=== PATIENT | female | born 1955 | race Caucasian/White ===

== ENCOUNTER 2016-10-24 11:56 | Inpatient (IN) | payer MEDICARE ==
--- NOTE | 2016-10-24 12:18 | EDPRACDOC ---
- General Information Chief Complaint: Generalized Weakness Stated Complaint: SYNCOPAL EPISODE CP [facility] DX WITH PNEUMONIA Time Seen by Provider: 10/24/16 12:11 Mode Of Arrival: Car Home Medications: Home Medications Albuterol Sulfate [Proventil, Ventolin] 2.5 mg NEB Q6H 10/24/16 Budesonide/Formoterol Fumarate [Symbicort 160-4.5 Mcg Inhaler] 2 puff INH BID Divalproex Sodium [Depakote] 500 mg PO DAILY 10/24/16 Gabapentin 300 mg PO TID 10/24/16 Levofloxacin [Levaquin] 500 mg PO .DAILY X 7D 10/24/16 Lisinopril/Hydrochlorothiazide [Lisinopril-Hctz 10-12.5 mg Tab] 1 tab PO DAILY 10/24/16 Mirtazapine [Remeron] 30 mg PO HS 10/24/16 Montelukast Sodium [Singulair] 10 mg PO DAILY 10/24/16 Oxycodone HCl [Oxycodone Immediate Release] 10 mg PO BID 10/24/16 Pantoprazole Sodium [Protonix] 40 mg PO DAILY 10/24/16 Prednisone [Deltasone, Orasone] 10 mg PO .TAPER 10/24/16 Rosuvastatin Calcium [Crestor] 20 mg PO DAILY 10/24/16 Tizanidine HCl [Zanaflex] 4 mg PO BID 10/24/16 Allergies/Adverse Reactions: Allergies Allergy/AdvReac Type Severity Reaction Status Date / Time acetaminophen Allergy Unknown Verified 10/24/16 12:18 [From Darvocet-N] meperidine [From Demerol] Allergy Unknown Verified 10/24/16 12:18 propoxyphene Allergy Unknown Verified 10/24/16 12:18 [From Darvocet-N] ALL CILLINS Allergy Anaphylaxis Uncoded 10/24/16 12:18 * - 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 PT REPORTS FEVER TO 104 LAST NIGHT Duration: Minutes (LESS THAN ONE MINUTE) Presyncopal phase:: Reports: Other (DIZZINESS) Syncopal phase:: Reports: With standing Postsyncopal phase:: Reports: Rapid recovery Prehospital care: Reports: None History of: Denies: Atrial Fibrillation, Aneurysm, Syncope, Seizures, Hypoglycemia Associated Signs/Symptoms: Reports: Chest pain, Fever, SOB. 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 (Medication/ neb tx x 2 at home Dose/Time) ED Past Medical History - History Reviewed Yes Nurses notes reviewed and agree except as marked - Patient Medical History Cardiac History: Reports: Hypertension, Cardiac Catheterization, Hypercholesterolemia Respiratory History: Reports: Asthma, COPD GI/ History: Reports: Gastroesophageal Reflux Musculoskeletal History: Reports: Arthritis Systemic History: Denies: Cancer Surgical History: Reports: Appendectomy, Hysterectomy, Cardiac Catheterization - Social Medical History Smoking Status: Former smoker ETOH: None Substance Abuse: None EDM Review of Systems - Review of Systems Constitutional: Chills, Fever Eyes: negative: Blurred Vision, Double Vision Ears: negative: Drainage Throat: negative: Pain Nose: Congestion. negative: Discharge Respiratory: Cough, Shortness of Breath, Wheezing Cardiovascular: Syncope. negative: Chest Pain, Palpitations Gastrointestinal: negative: Diarrhea, Nausea, Pain, Vomiting Genitourinary: negative: Dysuria, Frequency Neurological: negative: Dizziness, Headache, Numbness, Weakness Musculoskeletal: No Symptoms Reported Integumentary: No Symptoms Reported - Physical Exam Constitutional: Alert (Awake), No apparent distress Oriented to: Time, Person, Place Last recorded Vital Signs: Last Vital Signs Temp 98.2 F 10/24/16 12:03 Pulse 79 10/24/16 12:03 Resp 18 10/24/16 12:03 BP 134/63 10/24/16 12:03 Pulse Ox 95 10/24/16 12:03 Oxygen Pulse Oxygen Saturation 95 O2 Device Room Air Oxygen Flow Rate Fraction of Inspired Oxygen ( FIO2) - HEENT Head: Normal ( normocephalic) Eye Exam: Normal (PERRL, EOMI, Sclera white) Oropharynx: Normal (Pharynx:Moist without exudate,Gums-no swelling) Tympanic Membrane: Normal ENT EAC: Normal TMJ: Normal Nose: No Symptoms Reported (septum midline) Neck: Normal (FROM, trachea at midline) - Respiratory/Cardiovascular Respiratory: Rhonchi. negative: Accessory Muscle Use, Retractions Cardiovascular: Normal (RRR without murmur, gallop or rub) - GI Auscultation: Normal (NABS) Palpation: Normal (Soft,No rebound or guarding, non distended) Tenderness: Non tender Herring's Sign: Negative - Musculoskeletal Back: Normal (Non-Tender) Extremities: Normal (Normal tone, Pulses 2+ No cyanosis or edema, FROM) - Integumentary Skin: Normal, Warm, Dry Lymphatics: Normal (no adenopathy) - Neurologic Memory Impaired: Normal Motor Function: Normal (Normal tone, Pulses 2+ No cyanosis or edema, FROM) Cranial Nerve: Normal (CN II-X11 intact sensation, strength 5/5) Cerebellar: Normal Mood Description: Normal Perception: Normal - Differential Diagnosis Anemia, Dehydration, Electrolyte Disorder, Myocardial Infarction, Pulmonary Embolus - Re-evaluation Re-evaluation 1 Re-evaluation Time: 14:33 (FEELS A LITTLE BETTER BUT STILL SOBR) - Results 10/24/16 12:16 10/24/16 12:16 10/24/16 14:34 Laboratory Results - last 24 hr 10/24/16 10/24/16 10/24/16 12:16 12:16 12:16 WBC 12.1 H RBC 4.22 Hgb 13.0 Hct 38.8 MCV 92 MCH 30.8 MCHC 33.4 RDW 14.0 Plt Count 273 MPV 9.4 Neut % (Auto) 78.0 H Lymph % (Auto) 15.8 L [place] % (Auto) 5.7 Eos % (Auto) 0.1 Baso % (Auto) 0.4 Absolute Neuts (auto) 9.44 H Absolute Lymphs (auto) 1.82 PT INR APTT Puncture Site pH pCO2 pO2 HCO3 Total CO2 Base Excess FiO2 % Specimen Drawn By Sodium 142 Potassium 4.0 Chloride 105 Carbon Dioxide 26 Anion Gap 15 BUN 23 H Creatinine 1.10 H Estimated GFR (MDRD) 50 L Glucose 95 Calculated Osmolality 277 Lactic Acid 1.2 Calcium 9.9 Total Bilirubin 0.5 AST 28 ALT 32 Alkaline Phosphatase 88 Troponin I < 0.01 Fwx-N-Vydzirwmjmw Pept 155 Total Protein 7.5 Albumin 4.2 Lipase 165 10/24/16 10/24/16 12:16 14:08 WBC RBC Hgb Hct MCV MCH MCHC RDW Plt Count MPV Neut % (Auto) Lymph % (Auto) [place] % (Auto) Eos % (Auto) Baso % (Auto) Absolute Neuts (auto) Absolute Lymphs (auto) PT 12.0 H INR 1.2 APTT 19.4 L Puncture Site Right radial pH 7.450 pCO2 35.0 pO2 57.0 L HCO3 24.3 Total CO2 25.4 Base Excess 0.7 FiO2 % 21% Specimen Drawn By Piksa Sodium Potassium Chloride Carbon Dioxide Anion Gap BUN Creatinine Estimated GFR (MDRD) Glucose Calculated Osmolality Lactic Acid Calcium Total Bilirubin AST ALT Alkaline Phosphatase Troponin I Tzp-N-Asgclwjvsyv Pept Total Protein Albumin Lipase - EKG EKG #1 EKG Time: 12:17 -: Yes EKG interpreted by me Rate: bpm: 78 [place]: Normal Rhythm: NSR Block: None Hypertrophy: None ST: Nonsp Comparison: 01/05/11 (NO CHANGE) - Diagnostic Imaging CT HEAD Image interpreted by: Radiologist CT HEAD WITHOUT CONTRAST TECHNIQUE: Contiguous axial images were obtained from the base of the skull through the vertex without intravenous contrast. COMPARISON: MR Brain 06/11/2014 FINDINGS: There is no evidence of mass effect, midline shift or extra-axial fluid collections. There is no evidence of a space-occupying lesion or intracranial hemorrhage. There is no evidence of a cortical-based area of acute infarction. The ventricles and sulci are appropriate for the patient's age. The basal cisterns are patent. Visualized portions of the orbits are unremarkable. The visualized portions of the paranasal sinuses and mastoid air cells are unremarkable. The osseous structures are unremarkable. IMPRESSION: No acute intracranial pathology. CXR Image interpreted by: Radiologist CHEST 2 VIEW COMPARISON: 10/22/2016 FINDINGS: There was mild hazy left lower lobe airspace disease has seen on the lateral view. There is no other focal parenchymal opacity. There is no pleural effusion or pneumothorax. The heart and mediastinal contours are unremarkable. The osseous structures are unremarkable. IMPRESSION: Mild hazy left lower lobe airspace disease has seen on the lateral view improved compared with the prior exam. - Additional Information DISCUSSED WITH DR MILLER, HE WILL DISCUSS WITH HOSPITALIST - Departure Condition: Stable Final Diagnosis: Community acquired pneumonia, Hypoxia, Failure of outpatient treatment, SNYCOPE Instructions: Weakness (ED) Referrals: [place] [Primary Care Provider] - One Week Prescriptions: No Action Montelukast Sodium [Singulair] 10 mg PO DAILY Divalproex Sodium [Depakote] 500 mg PO DAILY Tizanidine HCl [Zanaflex] 4 mg PO BID Mirtazapine [Remeron] 30 mg PO HS Oxycodone HCl [Oxycodone Immediate Release] 10 mg PO BID Lisinopril/Hydrochlorothiazide [Lisinopril-Hctz 10-12.5 mg Tab] 1 tab PO DAILY Gabapentin 300 mg PO TID Rosuvastatin Calcium [Crestor] 20 mg PO DAILY Prednisone [Deltasone, Orasone] 10 mg PO .TAPER Budesonide/Formoterol Fumarate [Symbicort 160-4.5 Mcg Inhaler] 2 puff INH BID Levofloxacin [Levaquin] 500 mg PO .DAILY X 7D Albuterol Sulfate [Proventil, Ventolin] 2.5 mg NEB Q6H Pantoprazole Sodium [Protonix] 40 mg PO DAILY
[2016-10-24] MEDS ORDERED: Albuterol/Ipratropium Neb 3 ML NEB NEB ONE (12:20)
[2016-10-24 12:43] LABS: AUTOMATED BASOPHIL 0.4 % (0-2); AUTOMATED EOSINOPHIL 0.1 % (0-5); AUTOMATED LYMPH 15.8 % (17-44); AUTOMATED MONOCYTE 5.7 % (3-10); MPV 9.4 fL (7.4-10.4)
[2016-10-24 12:54] LABS: BLOOD UREA NITROGEN 23 MG/DL (7-17); CALCIUM 9.9 MG/DL (8.4-10.2); CALCULATED OSMOLALITY 277 MOs/Kg (270-290); CHLORIDE 105 mEq/L (98-107); GLUCOSE 95 mg/dL (70-99); SODIUM LEVEL 142 mEq/L (137-146); TOTAL PROTEIN 7.5 G/DL (6.3-8.2)
[2016-10-24 12:55] LABS: PARTIAL THROMB. TIME 19.4 SEC (22-35); PT-INR 1.2
--- NOTE | 2016-10-24 13:14 | DIRPT ---
CLINICAL DATA: Syncope EXAM: CT HEAD WITHOUT CONTRAST TECHNIQUE: Contiguous axial images were obtained from the base of the skull through the vertex without intravenous contrast. COMPARISON: MR Brain 06/11/2014 FINDINGS: There is no evidence of mass effect, midline shift or extra-axial fluid collections. There is no evidence of a space-occupying lesion or intracranial hemorrhage. There is no evidence of a cortical-based area of acute infarction. The ventricles and sulci are appropriate for the patient's age. The basal cisterns are patent. Visualized portions of the orbits are unremarkable. The visualized portions of the paranasal sinuses and mastoid air cells are unremarkable. The osseous structures are unremarkable. IMPRESSION: No acute intracranial pathology. Electronically Signed By: Lindsay Isaac On: 10/24/2016 13:12
--- NOTE | 2016-10-24 13:31 | DIRPT ---
CLINICAL DATA: Shortness of breath with pneumonia for 2 days. EXAM: CHEST 2 VIEW COMPARISON: 10/22/2016 FINDINGS: There was mild hazy left lower lobe airspace disease has seen on the lateral view. There is no other focal parenchymal opacity. There is no pleural effusion or pneumothorax. The heart and mediastinal contours are unremarkable. The osseous structures are unremarkable. IMPRESSION: Mild hazy left lower lobe airspace disease has seen on the lateral view improved compared with the prior exam. Electronically Signed By: Lindsay Isaac On: 10/24/2016 13:28
[2016-10-24 14:13] LABS: ALLEN'S TEST PASS; BEb 0.7 (+/- 2); TCO2 25.4 MMOL/L (23-27)
[2016-10-24 14:14] LABS: ABG Draw Site Right Radial
[2016-10-24] MEDS ORDERED: Levofloxacin 750 mg/150 ml D5W 750 MG/150 ML RTU IV ONE (14:49)
[2016-10-24] MEDS ORDERED: BENZONATATE 100 MG PERLES PO PRN (14:58)
[2016-10-24] MEDS ORDERED: TUSSIONEX 5 ML ORAL SYRINGE PO PRN (14:58)
[2016-10-24] MEDS ORDERED: ALBUTEROL 0.083% 3 ML NEB NEB PRN (14:58)
[2016-10-24] MEDS ORDERED: BISACODYL 10 MG SUPP PR PRN (14:58)
[2016-10-24] MEDS ORDERED: ACETAMINOPHEN 325 MG SUPP PR PRN (14:58)
[2016-10-24] MEDS ORDERED: SENNA CONCENTRATE TAB PO PRN (14:58)
[2016-10-24] MEDS ORDERED: ACETAMINOPHEN 325 MG/TAB TABLET PO PRN (14:58)
[2016-10-24] MEDS ORDERED: ONDANSETRON HCL 4 MG/2 ML VIAL IV PRN (14:58)
[2016-10-24] MEDS ORDERED: PROMETHAZINE 25 MG/ML VIAL IV PRN (14:58)
[2016-10-24] MEDS ORDERED: CEFTRIAXONE 1 GM in D5W 100 ML IV SCH (16:00)
[2016-10-24] MEDS ORDERED: DIPHENHYDRAMINE 25 MG CAP PO PRN (17:02)
--- NOTE | 2016-10-24 17:18 | HISTPHYS ---
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 She noted a sore throat and continued feeling worse over the ensuing days. She went to see her primary care provider in Dr. Valdez's office who started her on Levaquin and prednisone for the infection. She had a fever to 104 F that same day and today she noted increased shortness breath. She came into the emergency room with hypoxemia and left lower lobe infiltrate on chest x-ray. She also mentioned that she had severe left lower chest pleuritic pain that made it very difficult for her to breathe. She also has a history of 2 back operations with intermittent right lower extremity sciatica, Aguilar's esophagus, asthma, COPD associated with 150 pack year history of tobacco abuse stopping 5 years ago hypertension migraines with stroke like symptoms, peripheral neuropathy, and muscle spasms in her back. She indicates that she has also suffered with right knee injury requiring 11 separate surgeries but never having had it replaced. Forty years ago she had peritonitis from a ruptured appendix. - Medical History Cardiac History: Reports: Hypertension, Cardiac Catheterization, Hypercholesterolemia. Denies: Atrial Fibrillation, Syncope Respiratory History: Reports: Asthma, COPD GI/ History: Reports: Gastroesophageal Reflux Musculoskeletal History: Reports: Arthritis Systemic History: Denies: Cancer Neurological History: Denies: Seizures - Surgical History Reports: Appendectomy, Hysterectomy, Cardiac Catheterization - Medictions/Allergies Allergies acetaminophen [From Darvocet-N] Allergy (Verified 10/24/16 12:18) Unknown meperidine [From Demerol] Allergy (Verified 10/24/16 12:18) Unknown propoxyphene [From Darvocet-N] Allergy (Verified 10/24/16 12:18) Unknown ALL CILLINS Allergy (Uncoded 10/24/16 12:18) Anaphylaxis* Current Medication List: Reviewed Home Medications Albuterol Sulfate [Proventil, Ventolin] 2.5 mg NEB Q6H 10/24/16 Budesonide/Formoterol Fumarate [Symbicort 160-4.5 Mcg Inhaler] 2 puff INH BID Divalproex Sodium [Depakote] 500 mg PO DAILY 10/24/16 Gabapentin 300 mg PO TID 10/24/16 Levofloxacin [Levaquin] 500 mg PO .DAILY X 7D 10/24/16 Lisinopril/Hydrochlorothiazide [Lisinopril-Hctz 10-12.5 mg Tab] 1 tab PO DAILY 10/24/16 Mirtazapine [Remeron] 30 mg PO HS 10/24/16 Montelukast Sodium [Singulair] 10 mg PO DAILY 10/24/16 Oxycodone HCl [Oxycodone Immediate Release] 10 mg PO BID 10/24/16 Pantoprazole Sodium [Protonix] 40 mg PO DAILY 10/24/16 Prednisone [Deltasone, Orasone] 10 mg PO .TAPER 10/24/16 Rosuvastatin Calcium [Crestor] 20 mg PO DAILY 10/24/16 Tizanidine HCl [Zanaflex] 4 mg PO BID 10/24/16 - Family History Reports: Hypertension, Diabetes, Cancer (Father had cancer of the colon), Stroke (Father), Cardiac Disorders - Social History Travel Outside of [place] in the Last 3 Months?: No Lives: with Spouse Smoking Status: Former smoker (Former heavy smoker with 150 pack year history of tobacco abuse) Social History: Reports: Alcohol Use. Denies: Substance Use Disorder - Review of Systems Constitutional: No Symptoms Reported (No Fever, chills, wt loss/gain, diaphoresis,fatigue/malaise.) Eyes: No Symptoms Reported (No blurry vision, visual changes, eye pain, or eye redness.) Ears: No Symptoms Reported (No ear pain or discharge) Nose: No Symptoms Reported (No nasal discharge/congestion or bleeding) Mouth: No Symptoms Reported (No oropharyngeal lesions or erythema) Throat/Neck: No Symptoms Reported (No throat pain or swelling.No oropharyngeal lesions or erythema.) Respiratory: Cough, Shortness of Breath, Wheezing, Pleurisy Cardiovascular: No Symptoms Reported (No chest pain or palpitations.) Gastrointestinal: No Symptoms Reported (No abdominal pain, nausea, vomiting, diarrhea, constipation, or bloody stool.) Genitourinary: No Symptoms Reported (No dysuria or hematuria.) Neurological: No Symptoms Reported (No headache, dizziness, seizures, or focal weakness.) Musculoskeletal:: Chronic low back pain, Osteoarthritis, Joint Pain Integumentary: No Symptoms Reported (no rashes or lesions) Allergic/Immunologic: No Symptoms Reported (no rashes or lesions) Hematologic: No Symptoms Reported (No chronic anemia, bleeding, or easy bruising.), Other (Lymphatics- no lymph node swelling or pain.) Endocrine: No Symptoms Reported (No thyroid issues, polyuria, or polydipsia.) Psychiatric: No Symptoms Reported (Fully oriented, with normal and appropriate affect.) - Physical Exam Vital Signs: Initial Vitals Temperature 98.2 F 10/24/16 12:03 Pulse Rate 79 10/24/16 12:03 Respiratory Rate 18 10/24/16 12:03 Blood Pressure 134/63 10/24/16 12:03 Pulse Oxygen Saturation 95 10/24/16 12:03 Constitutional: Alert Oriented to: Time, Person, Place - HEENT Head: Normal (normocephalic, atraumatic.), Other (No cervical lymphadenopathy. No supraclavicular lymphadenopathy. Neck: No palpable mass, supple , trachea midline.) Eye: Normal (pupils equal, reactive to light, and round; EOMI, Sclera white) Oropharynx: Normal (Pharynx: Moist without exudate,Gums-no swelling, No oropharyngeal lesions or erythema, Mucous membranes are dry.) ENT EAC: Normal (No oropharyngeal lesions or erythema. Mucous membranes are dry. ) TMJ: Normal Nose: No Symptoms Reported (septum midline, Nares patent, without discharge or bleeding.) Respiratory: Diminished, Rhonchi, Wheezes. negative: Tachypnea Cardiovascular: Normal (RRR , Normal S1, S2. No murmurs, rubs, or gallops. PMI non-displaced. Carotids: no carotid bruits. No bradycardia or tachycardia. DP pulses 2+ bilaterally.) - GI Auscultation: Normal (normal active sounds) Palpation: Normal (Soft,non distended,nontender. No hepatosplenomegaly.) Tenderness: Non tender (No rebound or guarding) Herring's Sign: Negative - Musculoskeletal Back: Other (Lumbosacral spine scar) Extremities: Other (Multiple scars over right knee indicating previous surgery) . negative: Cyanosis, Edema Spine: limited range of motion, muscle spasm - Integumentary Skin: Normal (Clean, dry, and intact. No rashes. No lesions.) Lymphatics: Normal (No cervical lymphadenopathy. No supraclavicular lymphadenopathy.) - Neurologic Memory Impaired: Normal Motor Function: Normal (Motor 5/5 throughout.Normal tone, Pulses 2+ No cyanosis or edema, FROM) Cranial Nerve: Normal (CN II-XII intact sensation, strength 5/5) Cerebellar: Normal (Babinski: toes downgoing bilaterally. Intact Finger to nose. Sensory grossly intact to light touch. Intact rapid alternating movements bilaterally. No pronator drift.) Mood Description: Normal (Fully oriented. Normal and appropriate affect.) Thought: Coherent Perception: Normal (Normal and appropriate affect.) - Focused CV Perfusion Exam Vital Signs: Last Vital Signs Temp 98.1 F 10/24/16 16:48 Pulse 78 10/24/16 16:48 Resp 20 10/24/16 16:48 BP 149/79 10/24/16 16:48 Pulse Ox 97 10/24/16 16:48 - Lab Results 10/24/16 12:16 10/24/16 12:16 Laboratory Results - last 24 hr 10/24/16 10/24/16 10/24/16 12:16 12:16 12:16 WBC 12.1 H RBC 4.22 Hgb 13.0 Hct 38.8 MCV 92 MCH 30.8 MCHC 33.4 RDW 14.0 Plt Count 273 MPV 9.4 Neut % (Auto) 78.0 H Lymph % (Auto) 15.8 L [place] % (Auto) 5.7 Eos % (Auto) 0.1 Baso % (Auto) 0.4 Absolute Neuts (auto) 9.44 H Absolute Lymphs (auto) 1.82 PT INR APTT Puncture Site pH pCO2 pO2 HCO3 Total CO2 Base Excess FiO2 % Specimen Drawn By Sodium 142 Potassium 4.0 Chloride 105 Carbon Dioxide 26 Anion Gap 15 BUN 23 H Creatinine 1.10 H Estimated GFR (MDRD) 50 L Glucose 95 Calculated Osmolality 277 Lactic Acid 1.2 Calcium 9.9 Total Bilirubin 0.5 AST 28 ALT 32 Alkaline Phosphatase 88 Troponin I < 0.01 Shh-S-Bvptohhpgmv Pept 155 Total Protein 7.5 Albumin 4.2 Lipase 165 10/24/16 10/24/16 10/24/16 12:16 14:08 14:56 WBC RBC Hgb Hct MCV MCH MCHC RDW Plt Count MPV Neut % (Auto) Lymph % (Auto) [place] % (Auto) Eos % (Auto) Baso % (Auto) Absolute Neuts (auto) Absolute Lymphs (auto) PT 12.0 H INR 1.2 APTT 19.4 L Puncture Site Right radial pH 7.450 pCO2 35.0 pO2 57.0 L HCO3 24.3 Total CO2 25.4 Base Excess 0.7 FiO2 % 21% Specimen Drawn By Piksa Sodium Potassium Chloride Carbon Dioxide Anion Gap BUN Creatinine Estimated GFR (MDRD) Glucose Calculated Osmolality Lactic Acid Calcium Total Bilirubin AST ALT Alkaline Phosphatase Troponin I < 0.01 Xjo-F-Frpbtuqnuon Pept Total Protein Albumin Lipase - Diagnostic Findings Chest x-ray shows left lower lobe infiltration. - Assessment (1) Left lower lobe pneumonia J18.1 - LOBAR PNEUMONIA, UNSPECIFIED ORGANISM Acute Present on Admission: Yes Qualifiers: Pneumonia type: due to unspecified organism Qualified Code(s): J18.1 - Lobar pneumonia, unspecified organism Left lower lobe pneumonia noted on chest x-ray has been problematic since Saturday October 22, 2016. Failed outpatient treatment with p.o. Levaquin. Today will start Rocephin Zithromax combination and patient is already on prednisone and will start on H2 and H1 receptors blockers to avoid reaction associated with any cross reactivity to penicillin. IV Solu-Medrol for the wheezing will be administered instead of p.o. prednisone. Continuation of her previous Singulair is necessary. (2) Hypertension I10 - ESSENTIAL (PRIMARY) HYPERTENSION Acute Present on Admission: Yes Qualifiers: Hypertension type: essential hypertension Qualified Code(s): I10 - Essential (primary) hypertension Continuation of previous antihypertensive therapy will take place. (3) Hypercholesterolemia E78.00 - PURE HYPERCHOLESTEROLEMIA, UNSPECIFIED Acute Present on Admission: Yes Crestor daily. (4) Migraines G43.909 - MIGRAINE, UNSP, NOT INTRACTABLE, WITHOUT STATUS MIGRAINOSUS Chronic Present on Admission: Yes Qualifiers: Migraine type: persistent migraine aura with cerebral infarction Intractability: not intractable Qualified Code(s): G43.609 - Persistent migraine aura with cerebral infarction, not intractable, without status migrainosus; I63.9 - Cerebral infarction, unspecified (5) COPD (chronic obstructive pulmonary disease) J44.9 - CHRONIC OBSTRUCTIVE PULMONARY DISEASE, UNSPECIFIED Acute Present on Admission: Yes Qualifiers: COPD type: emphysema Emphysema type: centrilobular Qualified Code(s): J43.2 - Centrilobular emphysema Continuation of previous inhalation therapy will take place. (6) Hypoxia R09.02 - HYPOXEMIA Acute Present on Admission: Yes Supplemental O2 to keep sats above 92 %. (7) Obesity (BMI 30.0-34.9) E66.9 - OBESITY, UNSPECIFIED Chronic Present on Admission: Yes Weight loss useful. (8) Pleuritis R09.1 - PLEURISY Acute Present on Admission: Yes Case Care Discussed with: Patient, Nursing Staff Total Time: One Hour 22 min Critical Care: No Code: [id number]
[2016-10-24] MEDS ORDERED: AZITHROMYCIN 500 MG in D5W 250 ML IV SCH (18:00)
[2016-10-24] MEDS: ENOXAPARIN 60 MG/0.6 ML PFS SQ SCH (18:11)
[2016-10-24] MEDS: METHYLPREDNISOLONE 125 MG/2 ML VIAL IV SCH (18:41)
[2016-10-24] MEDS ORDERED: Vaccine Screening Complete SCH (19:00)
[2016-10-24] MEDS ORDERED: DIPHENHYDRAMINE 25 MG CAP PO SCH (19:00)
[2016-10-24] MEDS: Levofloxacin 750 mg/150 ml D5W 750 MG/150 ML RTU IV SCH (19:38)
[2016-10-24] MEDS: RANITIDINE 150 MG TAB PO SCH (19:40)
[2016-10-24] MEDS: PROBIOTIC BLEND TAB PO SCH (19:40)
[2016-10-24] MEDS: DIPHENHYDRAMINE 25 MG CAP PO SCH (19:40)
[2016-10-24 19:50] LABS: LEUKOCYTES/URINE NEG (NEGATIVE); NITRITE/URINE NEG (NEGATIVE); RBC/URINE 0-2 (0-5); URINE OCCULT BLOOD 1+ (NEG/TRACE); WBC/URINE 0-2 (0-5)
[2016-10-24] MEDS ORDERED: METHYLPREDNISOLONE 125 MG/2 ML VIAL IV SCH (20:00)
[2016-10-24] MEDS: Albuterol/Ipratropium Neb 3 ML NEB NEB SCH (20:17)
[2016-10-24] MEDS: BUDESONIDE 0.5 MG NEB NEB SCH (20:22)
[2016-10-24] MEDS ORDERED: RANITIDINE 150 MG TAB PO SCH (21:00)
[2016-10-24] MEDS: CEFTRIAXONE 1 GM in D5W 100 ML IV SCH (21:09)
[2016-10-24] MEDS: OXYCODONE HCL 5 MG TABLET PO SCH (21:10)
[2016-10-24] MEDS: GABAPENTIN 300 MG CAP PO SCH (21:10)
[2016-10-24] MEDS: MIRTAZAPINE 15 MG TAB PO SCH (21:10)
[2016-10-24] MEDS: TIZANIDINE 2 MG TAB PO SCH (21:10)
[2016-10-25] MEDS: METHYLPREDNISOLONE 125 MG/2 ML VIAL IV SCH ×5 (00:14→20:54)
[2016-10-25] MEDS: DIVALPROEX SODIUM 500 MG PO SCH ×2 (00:15→20:55)
[2016-10-25] MEDS: DIPHENHYDRAMINE 25 MG CAP PO SCH ×5 (00:15→23:24)
[2016-10-25] MEDS: MONTELUKAST SODIUM 10 MG TAB PO SCH ×2 (00:16→20:56)
[2016-10-25] MEDS: LISINOPRIL 10 MG TAB PO SCH ×2 (00:16→20:56)
[2016-10-25] MEDS: HYDROCHLOROTHIAZIDE 12.5 MG CAP PO SCH ×2 (00:16→20:56)
[2016-10-25] MEDS: ROSUVASTATIN 10 MG TAB PO SCH ×2 (00:16→20:56)
[2016-10-25] MEDS: Albuterol/Ipratropium Neb 3 ML NEB NEB SCH ×4 (01:55→20:11)
[2016-10-25] MEDS: PANTOPRAZOLE 40 MG TAB PO SCH (05:45)
[2016-10-25] MEDS: GABAPENTIN 300 MG CAP PO SCH ×3 (05:45→20:57)
[2016-10-25] MEDS: RANITIDINE 150 MG TAB PO SCH ×2 (05:46→18:10)
[2016-10-25 06:32] LABS: MPV 10.3 fL (7.4-10.4)
[2016-10-25 06:47] LABS: BLOOD UREA NITROGEN 26 MG/DL (7-17); CALCIUM 9.2 MG/DL (8.4-10.2); CALCULATED OSMOLALITY 263 MOs/Kg (270-290); CHLORIDE 97 mEq/L (98-107); GLUCOSE 145 mg/dL (70-99)
[2016-10-25 06:59] LABS: SODIUM LEVEL 132 mEq/L (137-146)
[2016-10-25] MEDS ORDERED: PNEUMOCOCCAL 0.5 ML VIAL IM ONE (08:00)
[2016-10-25] MEDS: BUDESONIDE 0.5 MG NEB NEB SCH ×2 (08:17→20:13)
--- NOTE | 2016-10-25 09:21 | GENMEDPROG ---
Chief Complaint: Left pleuritic pain is the same dry cough. Notes Reviewed: Yes: Events from last night noted and discussed with Clinical Staff Current Medication List: Reviewed Currently: Reports: Tobacco Use/Hx (quit smoking) DVT Prophylaxis: Yes - Physical Examination Vital Signs and I&O: Last Vital Signs Temp 98.2 F 10/25/16 08:07 Pulse 92 10/25/16 08:07 Resp 20 10/25/16 08:07 BP 123/60 10/25/16 08:07 Pulse Ox 98 10/25/16 08:07 Oxygen Pulse Oxygen Saturation 98 O2 Device Nasal Cannula Oxygen Flow Rate 2 Fraction of Inspired Oxygen ( 2 FIO2) Intake & Output 10/22/16 10/23/16 10/24/16 10/25/16 23:59 23:59 23:59 23:59 Intake Total 478 240 Balance 478 240 Patient's weight 101.786 kg 101.775 kg General: Alert, Oriented x3, No acute distress, Well appearing, Well nourished HEENT: Normal (Normocephalic, atraumatic;EOMI.Sclera white, Nares patent, without discharge or bleeding. No oropharyngeal lesions or erythema. Mucous membranes are dry.) Neck: Non-tender, Full range of motion, Normal Trachea alignment, Normal inspection (No cervical lymphadenopathy. No supraclavicular lymphadenopathy.), No Masses palpable, Supple Lymphatics: Normal (No cervical lymphadenopathy. No supraclavicular lymphadenopathy.) Respiratory: Diminished, Rhonchi, Wheezes. negative: Tachypnea Cardiovascular: Regular rate and rhythm (No bradycardia or tachycardia), Normal S1, No Gallops,Rubs/Murmurs, Normal S2, Good Pedal Pulses (DP pulses 2+ bilaterally) GI: Normal bowel sounds (normal active sounds), Soft (non-distended), Non tender , No hepatospenomegaly, No masses Extremities/Musculoskeletal: Normal pulses (DP pulses 2+ bilaterally) Skin: Warm,Dry and Intact, No rashes, No significant lesion Neurological: Strength at 5/5 X4 ext (Motor 5/5 throughout.), Normal tone, Cranial nerves 3-12 NL ( 2-12 grossly intact.) Psych/Mental Status: Appropriate, Normal Affect Lab/DI/Studies Reviewed: 10/25/16 05:20 10/25/16 05:20 Laboratory Results - last 24 hr 10/24/16 10/24/16 10/24/16 12:16 12:16 12:16 WBC 12.1 H RBC 4.22 Hgb 13.0 Hct 38.8 MCV 92 MCH 30.8 MCHC 33.4 RDW 14.0 Plt Count 273 MPV 9.4 Neut % (Auto) 78.0 H Lymph % (Auto) 15.8 L [place] % (Auto) 5.7 Eos % (Auto) 0.1 Baso % (Auto) 0.4 Absolute Neuts (auto) 9.44 H Absolute Lymphs (auto) 1.82 PT INR APTT Puncture Site pH pCO2 pO2 HCO3 Total CO2 Base Excess FiO2 % Specimen Drawn By Sodium 142 Potassium 4.0 Chloride 105 Carbon Dioxide 26 Anion Gap 15 BUN 23 H Creatinine 1.10 H Estimated GFR (MDRD) 50 L Glucose 95 Calculated Osmolality 277 Lactic Acid 1.2 Calcium 9.9 Total Bilirubin 0.5 AST 28 ALT 32 Alkaline Phosphatase 88 Troponin I < 0.01 Uaq-W-Gzpsfbtcdlz Pept 155 Total Protein 7.5 Albumin 4.2 Lipase 165 Urine Color Urine Clarity Urine pH Ur Specific [place] Urine Protein Urine Glucose (UA) Urine Ketones Urine Occult Blood Urine Nitrite Urine Bilirubin Urine Urobilinogen Ur Leukocyte Esterase Urine RBC Urine WBC Ur Epithelial Cells Urine Bacteria Urine Mucus 10/24/16 10/24/16 10/24/16 12:16 14:08 14:56 WBC RBC Hgb Hct MCV MCH MCHC RDW Plt Count MPV Neut % (Auto) Lymph % (Auto) [place] % (Auto) Eos % (Auto) Baso % (Auto) Absolute Neuts (auto) Absolute Lymphs (auto) PT 12.0 H INR 1.2 APTT 19.4 L Puncture Site Right radial pH 7.450 pCO2 35.0 pO2 57.0 L HCO3 24.3 Total CO2 25.4 Base Excess 0.7 FiO2 % 21% Specimen Drawn By [place] Sodium Potassium Chloride Carbon Dioxide Anion Gap BUN Creatinine Estimated GFR (MDRD) Glucose Calculated Osmolality Lactic Acid Calcium Total Bilirubin AST ALT Alkaline Phosphatase Troponin I < 0.01 Jjy-W-Fbnoctwkpai Pept Total Protein Albumin Lipase Urine Color Urine Clarity Urine pH Ur Specific [place] Urine Protein Urine Glucose (UA) Urine Ketones Urine Occult Blood Urine Nitrite Urine Bilirubin Urine Urobilinogen Ur Leukocyte Esterase Urine RBC Urine WBC Ur Epithelial Cells Urine Bacteria Urine Mucus 10/24/16 10/25/16 10/25/16 19:36 05:20 05:20 WBC 14.1 H RBC 3.73 L Hgb 11.4 L D Hct 34.4 L MCV 92 MCH 30.7 MCHC 33.3 RDW 14.2 Plt Count 268 MPV 10.3 Neut % (Auto) Lymph % (Auto) [place] % (Auto) Eos % (Auto) Baso % (Auto) Absolute Neuts (auto) Absolute Lymphs (auto) PT INR APTT Puncture Site pH pCO2 pO2 HCO3 Total CO2 Base Excess FiO2 % Specimen Drawn By Sodium 132 L D Potassium 4.3 Chloride 97 L Carbon Dioxide 20 L Anion Gap 19 H BUN 26 H Creatinine 1.10 H Estimated GFR (MDRD) 50 L Glucose 145 H Calculated Osmolality 263 L Lactic Acid Calcium 9.2 Total Bilirubin AST ALT Alkaline Phosphatase Troponin I Lrb-P-Xyxozsvytzv Pept Total Protein Albumin Lipase Urine Color Yellow Urine Clarity Clear Urine pH 6.0 Ur Specific [place] 1.020 Urine Protein Neg Urine Glucose (UA) Neg Urine Ketones Neg Urine Occult Blood 1+ H Urine Nitrite Neg Urine Bilirubin Neg Urine Urobilinogen <2.0 Ur Leukocyte Esterase Neg Urine RBC 0-2 Urine WBC 0-2 Ur Epithelial Cells Occ Urine Bacteria Few Urine Mucus Occ - Assessment (1) Left lower lobe pneumonia Acute J18.1 - LOBAR PNEUMONIA, UNSPECIFIED ORGANISM Qualifiers: Pneumonia type: due to unspecified organism Qualified Code(s): J18.1 - Lobar pneumonia, unspecified organism Comment/Plan: Left lower lobe pneumonia noted on chest x-ray has been problematic since Saturday October 22, 2016. Failed outpatient treatment with p.o. Levaquin. Today will start Rocephin Levaquin (as patient had reaction to Zithromax) combination and patient is already on prednisone and will start on H2 and H1 receptors blockers to avoid reaction associated with any cross reactivity to penicillin. IV Solu-Medrol for the wheezing will be administered instead of p.o. prednisone. Continuation of her previous Singulair is necessary. (2) Hypertension Acute I10 - ESSENTIAL (PRIMARY) HYPERTENSION Qualifiers: Hypertension type: essential hypertension Qualified Code(s): I10 - Essential (primary) hypertension Comment/Plan: Continuation of previous antihypertensive therapy will take place. (3) Hypercholesterolemia Acute E78.00 - PURE HYPERCHOLESTEROLEMIA, UNSPECIFIED Comment/Plan: Crestor daily. (4) COPD (chronic obstructive pulmonary disease) Acute J44.9 - CHRONIC OBSTRUCTIVE PULMONARY DISEASE, UNSPECIFIED Qualifiers: COPD type: emphysema Emphysema type: centrilobular Qualified Code(s): J43.2 - Centrilobular emphysema Comment/Plan: Continuation of previous inhalation therapy will take place. 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 (7) Obesity (BMI 30.0-34.9) Chronic E66.9 - OBESITY, UNSPECIFIED Comment/Plan: Weight loss useful. (8) Pleuritis Acute R09.1 - PLEURISY Case Care Discussed with: Patient, Nursing Staff, Resource Management Education/Counseling Given To: Patient Education/Counseling Given Regarding: Diagnosis Total Time: 38 min Critical Care: No Code: 64874 (12+)
[2016-10-25] MEDS: TIZANIDINE 2 MG TAB PO SCH ×2 (09:54→20:57)
[2016-10-25] MEDS: OXYCODONE HCL 5 MG TABLET PO SCH ×2 (09:55→20:55)
[2016-10-25] MEDS: PROBIOTIC BLEND TAB PO SCH ×2 (12:48→18:10)
[2016-10-25] MEDS: BENZONATATE 100 MG PERLES PO SCH ×3 (12:48→20:54)
[2016-10-25] MEDS: KETOROLAC TROMETH 30 MG/ML VIAL IV SCH ×3 (12:49→23:24)
[2016-10-25] MEDS: ENOXAPARIN 60 MG/0.6 ML PFS SQ SCH (18:11)
[2016-10-25] MEDS: CEFTRIAXONE 1 GM in D5W 100 ML IV SCH (20:46)
[2016-10-25] MEDS: TUSSIONEX 5 ML ORAL SYRINGE PO SCH (20:55)
[2016-10-25] MEDS: MIRTAZAPINE 15 MG TAB PO SCH (20:56)
[2016-10-25] MEDS: Levofloxacin 750 mg/150 ml D5W 750 MG/150 ML RTU IV SCH (21:21)
[2016-10-26] MEDS: Albuterol/Ipratropium Neb 3 ML NEB NEB SCH ×4 (01:46→20:33)
[2016-10-26] MEDS: KETOROLAC TROMETH 30 MG/ML VIAL IV SCH ×2 (05:56→13:10)
[2016-10-26] MEDS: BENZONATATE 100 MG PERLES PO SCH ×3 (06:01→21:24)
[2016-10-26] MEDS: GABAPENTIN 300 MG CAP PO SCH ×3 (06:02→21:01)
[2016-10-26] MEDS: PANTOPRAZOLE 40 MG TAB PO SCH (06:02)
[2016-10-26] MEDS: RANITIDINE 150 MG TAB PO SCH (06:02)
[2016-10-26] MEDS: DIPHENHYDRAMINE 25 MG CAP PO SCH ×3 (06:02→18:22)
[2016-10-26 07:10] LABS: BLOOD UREA NITROGEN 55 MG/DL (7-17); CALCIUM 8.3 MG/DL (8.4-10.2); CALCULATED OSMOLALITY 258 MOs/Kg (270-290); CHLORIDE 92 mEq/L (98-107); GLUCOSE 113 mg/dL (70-99); SODIUM LEVEL 125 mEq/L (137-146)
[2016-10-26 07:18] LABS: MPV 10.1 fL (7.4-10.4)
[2016-10-26] MEDS: BUDESONIDE 0.5 MG NEB NEB SCH ×2 (08:06→20:40)
[2016-10-26] MEDS: OXYCODONE HCL 5 MG TABLET PO SCH ×2 (09:16→21:12)
[2016-10-26] MEDS: TUSSIONEX 5 ML ORAL SYRINGE PO SCH ×2 (09:16→21:12)
[2016-10-26] MEDS: TIZANIDINE 2 MG TAB PO SCH ×2 (09:17→21:02)
[2016-10-26] MEDS ORDERED: NS 1,000 ML IV ONE (12:55)
[2016-10-26] MEDS: PROBIOTIC BLEND TAB PO SCH ×2 (13:05→18:21)
[2016-10-26] MEDS: METHYLPREDNISOLONE 125 MG/2 ML VIAL IV SCH (13:05)
--- NOTE | 2016-10-26 13:30 | GENMEDPROG ---
Chief Complaint: Lest chest pain and shortness breath decreased cough. Notes Reviewed: Yes: Events from last night noted and discussed with Clinical Staff Current Medication List: Reviewed Currently: Reports: Tobacco Use/Hx (quit smoking) DVT Prophylaxis: Yes - Physical Examination Vital Signs and I&O: Last Vital Signs Temp 98.4 F 10/26/16 11:40 Pulse 78 10/26/16 12:32 Resp 18 10/26/16 11:40 BP 98/46 L 10/26/16 11:40 Pulse Ox 95 10/26/16 11:40 Oxygen Pulse Oxygen Saturation 95 O2 Device Nasal Cannula Oxygen Flow Rate 2 Fraction of Inspired Oxygen ( 2 FIO2) Intake & Output 10/23/16 10/24/16 10/25/16 10/26/16 23:59 23:59 23:59 23:59 Intake Total 478 1511 120 Output Total 500 Balance 478 1011 120 Patient's weight 101.786 kg 101.775 kg 102.172 kg General: Alert, Oriented x3, No acute distress, Well appearing, Well nourished HEENT: Normal (Normocephalic, atraumatic;EOMI.Sclera white, Nares patent, without discharge or bleeding. No oropharyngeal lesions or erythema. Mucous membranes are dry.) Neck: Non-tender, Normal Trachea alignment, Normal inspection (No cervical lymphadenopathy. No supraclavicular lymphadenopathy.), No Masses palpable, Supple Lymphatics: Normal (No cervical lymphadenopathy. No supraclavicular lymphadenopathy.) Respiratory: Diminished, Rhonchi (Noted when coughing), Wheezes (Faint). negative: Rales, Tachypnea Cardiovascular: Regular rate and rhythm (No bradycardia or tachycardia), Normal S1, No Gallops,Rubs/Murmurs, Normal S2, Good Pedal Pulses (DP pulses 2+ bilaterally) GI: Normal bowel sounds (normal active sounds), Soft (non-distended), Non tender , No hepatospenomegaly, No masses Extremities/Musculoskeletal: Normal pulses (DP pulses 2+ bilaterally) Skin: Warm,Dry and Intact, No rashes, No significant lesion Neurological: Strength at 5/5 X4 ext (Motor 5/5 throughout.), Normal tone, Cranial nerves 3-12 NL ( 2-12 grossly intact.) Psych/Mental Status: Appropriate, Normal Affect Lab/DI/Studies Reviewed: 10/26/16 06:00 10/26/16 06:00 Laboratory Results - last 24 hr 10/26/16 10/26/16 06:00 06:00 WBC 22.2 H RBC 3.59 L Hgb 10.9 L Hct 32.7 L MCV 91 MCH 30.3 MCHC 33.3 RDW 14.2 Plt Count 258 MPV 10.1 Sodium 125 L D Potassium 4.4 Chloride 92 L Carbon Dioxide 21 L Anion Gap 16 BUN 55 H Creatinine 2.40 H D Estimated GFR (MDRD) 20 L Glucose 113 H Calculated Osmolality 258 L Calcium 8.3 L - Assessment (1) Acute renal failure Acute N17.9 - ACUTE KIDNEY FAILURE, UNSPECIFIED Qualifiers: Acute renal failure type: with acute tubular necrosis Qualified Code(s): N17.0 - Acute kidney failure with tubular necrosis Comment/Plan: Unfortunately patient developed hypotension with systolic blood pressure in the 90s the within the past 48 hours and with the CANDIS-inhibitor decreased p.o. intake NSAID and thiazide diuretic her creatinine has climbed to 2.4 today. Will administer IV fluids discontinue the NSAID diuretic and CANDIS- inhibitor. (2) Left lower lobe pneumonia Acute J18.1 - LOBAR PNEUMONIA, UNSPECIFIED ORGANISM Qualifiers: Pneumonia type: due to unspecified organism Qualified Code(s): J18.1 - Lobar pneumonia, unspecified organism Comment/Plan: Left lower lobe pneumonia noted on chest x-ray has been problematic since Saturday October 22, 2016. Failed outpatient treatment with p.o. Levaquin. She is tolerating Rocephin Levaquin (as patient had reaction to Zithromax) combination and patient is already on prednisone with H2 and H1 receptors blockers to avoid reaction associated with any cross reactivity to penicillin. IV Solu-Medrol for the wheezing has been administered instead of p.o. prednisone and appears to be helping. Continuation of her previous Singulair is necessary. (3) Hypertension Acute I10 - ESSENTIAL (PRIMARY) HYPERTENSION Qualifiers: Hypertension type: essential hypertension Qualified Code(s): I10 - Essential (primary) hypertension Comment/Plan: Had to stop her CANDIS-inhibitor due to acute renal failure associated with hypotension and use of NSAIDs. Hopefully will be able to re- start this soon. (4) Hyponatremia Acute E87.1 - HYPO-OSMOLALITY AND HYPONATREMIA Comment/Plan: IV saline p.o. fluid restriction. Likely related to her pneumonia. (5) Hypercholesterolemia Acute E78.00 - PURE HYPERCHOLESTEROLEMIA, UNSPECIFIED Comment/Plan: Crestor daily. (6) COPD (chronic obstructive pulmonary disease) Acute J44.9 - CHRONIC OBSTRUCTIVE PULMONARY DISEASE, UNSPECIFIED Qualifiers: COPD type: emphysema Emphysema type: centrilobular Qualified Code(s): J43.2 - Centrilobular emphysema Comment/Plan: Continuation of previous inhalation therapy will take place along with Solu-Medrol tapering dose. 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 (9) Obesity (BMI 30.0-34.9) Chronic E66.9 - OBESITY, UNSPECIFIED Comment/Plan: Weight loss useful. (10) Pleuritis Acute R09.1 - PLEURISY Comment/Plan: This pains improving but can't use NSAIDs anymore because of her renal failure. Disposition Plan: Unfortunately she has developed renal failure sodiums dropping so she may be here 2 more days before going home. Case Care Discussed with: Patient, Nursing Staff, Resource Management Education/Counseling Given To: Patient Education/Counseling Given Regarding: Diagnosis, Treatment Total Time: 39 min Critical Care: No Code: 73094 (12+)
[2016-10-26] MEDS: OXYCODONE HCL 5 MG TABLET PO PRN (15:39)
[2016-10-26] MEDS: NS 1,000 ML IV SCH (16:08)
[2016-10-26] MEDS: ENOXAPARIN 40 MG/0.4 ML PFS SQ SCH (18:21)
[2016-10-26] MEDS: MONTELUKAST SODIUM 10 MG TAB PO SCH (21:01)
[2016-10-26] MEDS: MIRTAZAPINE 15 MG TAB PO SCH (21:01)
[2016-10-26] MEDS: ROSUVASTATIN 10 MG TAB PO SCH (21:02)
[2016-10-26] MEDS: DIVALPROEX SODIUM 500 MG PO SCH (21:02)
[2016-10-26] MEDS: METHYLPREDNISOLONE 40 MG/1 ML VIAL IV SCH (21:02)
[2016-10-26] MEDS: CEFTRIAXONE 1 GM in D5W 100 ML IV SCH (21:03)
[2016-10-27] MEDS: DIPHENHYDRAMINE 25 MG CAP PO SCH ×4 (00:13→16:59)
[2016-10-27] MEDS: Albuterol/Ipratropium Neb 3 ML NEB NEB SCH ×4 (02:05→20:12)
[2016-10-27 02:51] LABS: MPV 10.3 fL (7.4-10.4)
[2016-10-27 03:27] LABS: BLOOD UREA NITROGEN 62 MG/DL (7-17); CALCIUM 7.8 MG/DL (8.4-10.2); CALCULATED OSMOLALITY 255 MOs/Kg (270-290); CHLORIDE 91 mEq/L (98-107); GLUCOSE 116 mg/dL (70-99)
[2016-10-27 03:39] LABS: SODIUM LEVEL 122 mEq/L (137-146)
[2016-10-27] MEDS: NS 1,000 ML IV SCH ×4 (04:18→19:15)
[2016-10-27 04:49] VITALS: BMI 18.4
[2016-10-27] MEDS: PANTOPRAZOLE 40 MG TAB PO SCH (06:18)
[2016-10-27] MEDS: BENZONATATE 100 MG PERLES PO SCH ×3 (06:18→21:45)
[2016-10-27] MEDS: RANITIDINE 150 MG TAB PO SCH (06:18)
[2016-10-27] MEDS: GABAPENTIN 300 MG CAP PO SCH ×3 (06:18→21:43)
[2016-10-27] MEDS: METHYLPREDNISOLONE 40 MG/1 ML VIAL IV SCH ×2 (06:18→16:58)
[2016-10-27] MEDS: BUDESONIDE 0.5 MG NEB NEB SCH ×2 (08:30→20:13)
[2016-10-27] MEDS: OXYCODONE HCL 5 MG TABLET PO SCH ×2 (09:05→21:42)
[2016-10-27] MEDS: PROBIOTIC BLEND TAB PO SCH ×2 (09:05→16:57)
[2016-10-27] MEDS: TUSSIONEX 5 ML ORAL SYRINGE PO SCH ×2 (09:05→21:45)
[2016-10-27] MEDS: TIZANIDINE 2 MG TAB PO SCH ×2 (09:06→21:43)
[2016-10-27] MEDS ORDERED: DOCUSATE-SENNA CONCENTRATE TAB PO ONE (10:18)
[2016-10-27] MEDS ORDERED: BISACODYL 5 MG TAB PO PRN (10:18)
[2016-10-27] MEDS ORDERED: BISACODYL 5 MG TAB PO ONE (10:18)
--- NOTE | 2016-10-27 10:22 | GENMEDPROG ---
Chief Complaint: States she is feeling less short of breath and less chest discomfort. Requests that I order shower privileges for her. Notes Reviewed: Yes: Events from last night noted and discussed with Clinical Staff Current Medication List: Reviewed Currently: Reports: Tobacco Use/Hx (quit smoking) DVT Prophylaxis: Yes - Physical Examination Vital Signs and I&O: Last Vital Signs Temp 97.7 F 10/27/16 08:00 Pulse 85 10/27/16 08:00 Resp 18 10/27/16 08:00 BP 98/54 L 10/27/16 08:00 Pulse Ox 95 10/27/16 08:19 Oxygen Pulse Oxygen Saturation 95 O2 Device Room Air Oxygen Flow Rate 2 Fraction of Inspired Oxygen ( 2 FIO2) Intake & Output 10/24/16 10/25/16 10/26/16 10/27/16 23:59 23:59 23:59 23:59 Intake Total 478 1511 2132 1605 Output Total 712 343 2243 Balance 478 1011 1632 -195 Patient's weight 101.786 kg 101.775 kg 102.172 kg 56.699 kg General: Alert, Oriented x3, No acute distress, Well appearing, Well nourished HEENT: Normal (Normocephalic, atraumatic;EOMI.Sclera white, Nares patent, without discharge or bleeding. No oropharyngeal lesions or erythema. Mucous membranes are dry.) Neck: Non-tender, Normal Trachea alignment, Normal inspection (No cervical lymphadenopathy. No supraclavicular lymphadenopathy.), No Masses palpable, Supple Lymphatics: Normal (No cervical lymphadenopathy. No supraclavicular lymphadenopathy.) Respiratory: Diminished, Rhonchi (Noted when coughing), Wheezes (Faint). negative: Rales, Tachypnea Cardiovascular: Regular rate and rhythm (No bradycardia or tachycardia), Normal S1, No Gallops,Rubs/Murmurs, Normal S2, Good Pedal Pulses (DP pulses 2+ bilaterally) GI: Normal bowel sounds (normal active sounds), Soft (non-distended), Non tender , No hepatospenomegaly, No masses Extremities/Musculoskeletal: Normal pulses (DP pulses 2+ bilaterally) Skin: Warm,Dry and Intact, No rashes, No significant lesion Neurological: Strength at 5/5 X4 ext (Motor 5/5 throughout.), Normal tone, Cranial nerves 3-12 NL ( 2-12 grossly intact.) Psych/Mental Status: Appropriate, Normal Affect Lab/DI/Studies Reviewed: 10/27/16 02:00 10/27/16 02:00 Laboratory Results - last 24 hr 10/27/16 10/27/16 02:00 02:00 WBC 15.7 H RBC 3.62 L Hgb 11.0 L Hct 32.9 L MCV 91 MCH 30.5 MCHC 33.6 RDW 14.1 Plt Count 239 MPV 10.3 Sodium 122 L* Potassium 5.3 H Chloride 91 L Carbon Dioxide 21 L Anion Gap 15 BUN 62 H Creatinine 2.30 H Estimated GFR (MDRD) 21 L Glucose 116 H Calculated Osmolality 255 L Calcium 7.8 L - Assessment (1) Acute renal failure Acute N17.9 - ACUTE KIDNEY FAILURE, UNSPECIFIED Qualifiers: Acute renal failure type: with acute tubular necrosis Qualified Code(s): N17.0 - Acute kidney failure with tubular necrosis Comment/Plan: Unfortunately patient developed hypotension with systolic blood pressure in the 90s the within the past 72 hours and with the CANDIS-inhibitor decreased p.o. intake NSAID and thiazide diuretic her creatinine is 2.3 today. Will continue to administer IV fluids and already discontinued the NSAID diuretic and CANDIS-inhibitor. To start to complain of puffy legs so will give her a dose of Lasix. (2) Left lower lobe pneumonia Acute J18.1 - LOBAR PNEUMONIA, UNSPECIFIED ORGANISM Qualifiers: Pneumonia type: due to unspecified organism Qualified Code(s): J18.1 - Lobar pneumonia, unspecified organism Comment/Plan: Left lower lobe pneumonia noted on chest x-ray has been problematic since Saturday October 22, 2016. Failed outpatient treatment with p.o. Levaquin. She is tolerating Rocephin Levaquin (as patient had reaction to Zithromax) combination and patient is already on prednisone with H2 and H1 receptors blockers to avoid reaction associated with any cross reactivity to penicillin. IV Solu-Medrol for the wheezing has been administered instead of p.o. prednisone and appears to be helping. Continuation of her previous Singulair is necessary. (3) Hypertension Acute I10 - ESSENTIAL (PRIMARY) HYPERTENSION Qualifiers: Hypertension type: essential hypertension Qualified Code(s): I10 - Essential (primary) hypertension Comment/Plan: Had to stop her CANDIS-inhibitor due to acute renal failure associated with hypotension and use of NSAIDs. Hopefully will be able to re- start this soon. (4) Hyponatremia Acute E87.1 - HYPO-OSMOLALITY AND HYPONATREMIA Comment/Plan: IV saline p.o. fluid restriction. Likely related to her pneumonia. (5) Hypercholesterolemia Acute E78.00 - PURE HYPERCHOLESTEROLEMIA, UNSPECIFIED Comment/Plan: Crestor daily. (6) COPD (chronic obstructive pulmonary disease) Acute J44.9 - CHRONIC OBSTRUCTIVE PULMONARY DISEASE, UNSPECIFIED Qualifiers: COPD type: emphysema Emphysema type: centrilobular Qualified Code(s): J43.2 - Centrilobular emphysema Comment/Plan: Continuation of previous inhalation therapy will take place along with Solu-Medrol tapering dose. 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 (9) Obesity (BMI 30.0-34.9) Chronic E66.9 - OBESITY, UNSPECIFIED Comment/Plan: Weight loss useful. (10) Pleuritis Acute R09.1 - PLEURISY Comment/Plan: This pains improving but can't use NSAIDs anymore because of her renal failure. Case Care Discussed with: Patient, Nursing Staff Education/Counseling Given To: Patient Education/Counseling Given Regarding: Diagnosis Total Time: 39 MIN Critical Care: No Code: 53724 (12+)
[2016-10-27] MEDS ORDERED: FUROSEMIDE 40 MG/4 ML VIAL IV ONE (10:25)
[2016-10-27] MEDS: PEG-ELECTROLYTE 17 GM PACK PO SCH ×2 (11:57→16:55)
[2016-10-27] MEDS: OXYCODONE HCL 5 MG TABLET PO PRN (13:23)
[2016-10-27] MEDS: ENOXAPARIN 40 MG/0.4 ML PFS SQ SCH (16:57)
[2016-10-27] MEDS ORDERED: Levofloxacin 750 mg/150 ml D5W 750 MG/150 ML RTU IV SCH (20:00)
[2016-10-27] MEDS: CEFTRIAXONE 1 GM in D5W 100 ML IV SCH (21:38)
[2016-10-27] MEDS: DIVALPROEX SODIUM 500 MG PO SCH (21:42)
[2016-10-27] MEDS: ROSUVASTATIN 10 MG TAB PO SCH (21:42)
[2016-10-27] MEDS: DOCUSATE-SENNA CONCENTRATE TAB PO SCH (21:43)
[2016-10-27] MEDS: MONTELUKAST SODIUM 10 MG TAB PO SCH (21:43)
[2016-10-27] MEDS: MIRTAZAPINE 15 MG TAB PO SCH (21:43)
[2016-10-28] MEDS: DIPHENHYDRAMINE 25 MG CAP PO SCH ×2 (00:45→06:40)
[2016-10-28] MEDS: OXYCODONE HCL 5 MG TABLET PO PRN (00:45)
[2016-10-28] MEDS: Albuterol/Ipratropium Neb 3 ML NEB NEB SCH ×2 (02:39→08:45)
[2016-10-28] MEDS: NS 1,000 ML IV SCH (03:20)
[2016-10-28 03:29] LABS: BLOOD UREA NITROGEN 43 MG/DL (7-17); CALCIUM 8.2 MG/DL (8.4-10.2); CALCULATED OSMOLALITY 254 MOs/Kg (270-290); CHLORIDE 96 mEq/L (98-107); GLUCOSE 119 mg/dL (70-99); MPV 10.3 fL (7.4-10.4); SODIUM LEVEL 125 mEq/L (137-146)
[2016-10-28] MEDS: BENZONATATE 100 MG PERLES PO SCH (06:39)
[2016-10-28] MEDS: RANITIDINE 150 MG TAB PO SCH (06:40)
[2016-10-28] MEDS: METHYLPREDNISOLONE 40 MG/1 ML VIAL IV SCH (06:40)
[2016-10-28] MEDS: GABAPENTIN 300 MG CAP PO SCH (06:40)
[2016-10-28] MEDS: PANTOPRAZOLE 40 MG TAB PO SCH (06:40)
[2016-10-28 07:38] VITALS: BP 135/63; PULSE 72; TEMP 97.9
[2016-10-28] MEDS: OXYCODONE HCL 5 MG TABLET PO SCH (08:01)
[2016-10-28] MEDS: DOCUSATE-SENNA CONCENTRATE TAB PO SCH (08:02)
[2016-10-28] MEDS: TUSSIONEX 5 ML ORAL SYRINGE PO SCH (08:02)
[2016-10-28] MEDS: PROBIOTIC BLEND TAB PO SCH (08:03)
[2016-10-28] MEDS: TIZANIDINE 2 MG TAB PO SCH (08:03)
[2016-10-28] MEDS: PEG-ELECTROLYTE 17 GM PACK PO SCH (08:04)
[2016-10-28] MEDS: BUDESONIDE 0.5 MG NEB NEB SCH (08:52)
--- NOTE | 2016-10-28 11:05 | PCM.DCS92 ---
- Final/Secondary Discharge Diagnosis (1) Acute renal failure Acute N17.9 - ACUTE KIDNEY FAILURE, UNSPECIFIED Present on Admission: Yes with acute tubular necrosis N17.0 - Acute kidney failure with tubular necrosis Comment: Unfortunately patient developed hypotension with systolic blood pressure in the 90s the within the past 72 hours and with the CANDIS-inhibitor decreased p.o. intake NSAID and thiazide diuretic her creatinine is 1.2 today. Will continue to administer IV fluids and already discontinued the NSAID diuretic and CANDIS-inhibitor. To start to complain of puffy legs so will give her a dose of Lasix. (2) Left lower lobe pneumonia Acute J18.1 - LOBAR PNEUMONIA, UNSPECIFIED ORGANISM Present on Admission: Yes due to unspecified organism J18.1 - Lobar pneumonia, unspecified organism Comment: Left lower lobe pneumonia noted on chest x-ray has been problematic since Saturday October 22, 2016. Failed outpatient treatment with p.o. Levaquin. She is tolerating Rocephin Levaquin (as patient had reaction to Zithromax) combination and patient is already on prednisone with H2 and H1 receptors blockers to avoid reaction associated with any cross reactivity to penicillin. IV Solu-Medrol for the wheezing has been administered instead of p.o. prednisone and appears to be helping. Continuation of her previous Singulair is necessary. (3) Hypertension Acute I10 - ESSENTIAL (PRIMARY) HYPERTENSION Present on Admission: Yes essential hypertension I10 - Essential (primary) hypertension Comment: Had to stop her CANDIS-inhibitor due to acute renal failure associated with hypotension and use of NSAIDs. Hopefully will be able to re-start this soon. (4) Hyponatremia Acute E87.1 - HYPO-OSMOLALITY AND HYPONATREMIA Present on Admission: Yes Comment: IV saline p.o. fluid restriction. Likely related to her pneumonia. (5) Hypercholesterolemia Acute E78.00 - PURE HYPERCHOLESTEROLEMIA, UNSPECIFIED Present on Admission: Yes Comment: Crestor daily. (6) COPD (chronic obstructive pulmonary disease) Acute J44.9 - CHRONIC OBSTRUCTIVE PULMONARY DISEASE, UNSPECIFIED Present on Admission: Yes emphysema centrilobular J43.2 - Centrilobular emphysema Comment: Continuation of previous inhalation therapy will take place along with Solu-Medrol tapering dose. 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 (9) Obesity (BMI 30.0-34.9) Chronic E66.9 - OBESITY, UNSPECIFIED Present on Admission: Yes Comment: Weight loss useful. (10) Pleuritis Acute R09.1 - PLEURISY Present on Admission: Yes Comment: This pains improving but can't use NSAIDs anymore because of her renal failure. Discharge Disposition: Home Discharge Condition: Improved Cognitive Discharge Status: Unimpaired Fuctional Discharge Status: Independent Physician Follow up/Referrals: Bronwyn Malik PA [Primary Care Provider] - Hospital to call w/ appt. Home Medications / New Prescriptions: New Hydrocodone/Chlorphen Polis [Tussionex] 5 ml PO BID #4 oz Probiotic Blend [Rosy Q] 1 tab PO BIDLS #20 tablet Continue Montelukast Sodium [Singulair] 10 mg PO DAILY Divalproex Sodium [Depakote] 500 mg PO DAILY Tizanidine HCl [Zanaflex] 4 mg PO BID Mirtazapine [Remeron] 30 mg PO HS Oxycodone HCl [Oxycodone Immediate Release] 10 mg PO BID PRN PRN Reason: pain Lisinopril/Hydrochlorothiazide [Lisinopril-Hctz 10-12.5 mg Tab] 1 tab PO DAILY Gabapentin 300 mg PO TID Rosuvastatin Calcium [Crestor] 20 mg PO DAILY Budesonide/Formoterol Fumarate [Symbicort 160-4.5 Mcg Inhaler] 2 puff INH BID Levofloxacin [Levaquin] 500 mg PO .DAILY X 7D Albuterol Sulfate [Ventolin] 2.5 mg NEB Q6H PRN PRN Reason: Shortness Of Breath Pantoprazole Sodium [Protonix] 40 mg PO DAILY Prednisone [Deltasone, Orasone] 10 mg PO .TAPER #1 box Discharge Home Medication List Albuterol Sulfate [Ventolin] 2.5 mg NEB Q6H PRN 10/24/16 [History Confirmed 10/09 Last Taken 10/23/16] Budesonide/Formoterol Fumarate [Symbicort 160-4.5 Mcg Inhaler] 2 puff INH BID [History Confirmed 10/24/16 Last Taken 10/23/16] Divalproex Sodium [Depakote] 500 mg PO DAILY 10/24/16 [History Confirmed Last Taken 10/23/16] Gabapentin 300 mg PO TID 10/24/16 [History Confirmed 10/24/16 Last Taken ] Levofloxacin [Levaquin] 500 mg PO .DAILY X 7D 10/24/16 [History Confirmed Last Taken 10/24/16] Lisinopril/Hydrochlorothiazide [Lisinopril-Hctz 10-12.5 mg Tab] 1 tab PO DAILY 10/24/16 [History Confirmed 10/24/16 Last Taken 10/23/16] Mirtazapine [Remeron] 30 mg PO HS 10/24/16 [History Confirmed 10/24/16 Last Taken 10/23/16] Montelukast Sodium [Singulair] 10 mg PO DAILY 10/24/16 [History Confirmed Last Taken 10/23/16] Oxycodone HCl [Oxycodone Immediate Release] 10 mg PO BID PRN 10/24/16 [History Confirmed 10/24/16 Last Taken 10/23/16] Pantoprazole Sodium [Protonix] 40 mg PO DAILY 10/24/16 [History Confirmed Last Taken 10/23/16] Rosuvastatin Calcium [Crestor] 20 mg PO DAILY 10/24/16 [History Confirmed Last Taken 10/23/16] Tizanidine HCl [Zanaflex] 4 mg PO BID 10/24/16 [History Confirmed 10/24/16 Last Taken 10/23/16] Hydrocodone/Chlorphen Polis [Tussionex] 5 ml PO BID #4 oz 10/28/16 [Rx Last Taken Unknown] Prednisone [Deltasone, Orasone] 10 mg PO .TAPER #1 box 10/28/16 [Rx Last Taken Unknown] Probiotic Blend [Rosy Q] 1 tab PO BIDLS #20 tablet 10/28/16 [Rx Last Taken Unknown] 10/28/16 02:40 10/28/16 02:40 Laboratory Results - last 24 hr 10/28/16 10/28/16 10/28/16 02:40 02:40 06:20 WBC 11.2 H RBC 3.50 L Hgb 10.7 L Hct 31.8 L MCV 91 MCH 30.6 MCHC 33.6 RDW 14.1 Plt Count 222 MPV 10.3 Sodium 125 L Potassium 4.9 Chloride 96 L Carbon Dioxide 24 Anion Gap 10 BUN 43 H Creatinine 1.20 H Estimated GFR (MDRD) 45 L Glucose 119 H Calculated Osmolality 254 L Calcium 8.2 L Stool Occult Blood Neg Microbiology 10/24/16 19:36 Urine - Clean Catch - Midstream Urine Culture - Final No growth <10,00O CFU/ml O2 Device: Room Air Diet at Discharge: As Tolerated, 1800 Calorie Activity: As Tolerated - DC Summary Notes HPI/Notes: The patient very pleasant white 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 She noted a sore throat and continued feeling worse over the ensuing days. She went to see her primary care provider in Dr. Valdez's office who started her on Levaquin and prednisone for the infection. She had a fever to 104 F that same day and today she noted increased shortness breath. She came into the emergency room with hypoxemia and left lower lobe infiltrate on chest x-ray. She also mentioned that she had severe left lower chest pleuritic pain that made it very difficult for her to breathe. She also has a history of 2 back operations with intermittent right lower extremity sciatica, Aguilar's esophagus, asthma, COPD associated with 150 pack year history of tobacco abuse stopping 5 years ago hypertension migraines with stroke like symptoms, peripheral neuropathy, and muscle spasms in her back. She indicates that she has also suffered with right knee injury requiring 11 separate surgeries but never having had it replaced. Forty years ago she had peritonitis from a ruptured appendix. Hospital Course Note:: Discharge summary on patient named [facility] admitted to [facility] on 10/24/16 by Bronson Ball MD. Date of discharge is 09/27/2016. She was treated for left lower lobe pneumonia with Rocephin Zithromax. The Zithromax upset her stomach so she was switched back to Levaquin with the Rocephin. Steroids, H2 and H1 histamine blockers were given along with her Singulair and she tolerated the Rocephin well. A combination of her CANDIS- inhibitor a along with NSAID Toradol and hypotension led to ATN with a rise in her creatinine to 2.4. On day of discharge it had dropped back to 1.2. She also had a drop in her sodium which was felt to be related to pneumonia and this improved on day of discharge. She is advised follow-up with her primary care provider within the next 2 weeks. CC: [place] [employer] Dr. Valdez Total Time: 39 MIN Code: 91445 (>30min.) - Physical Exam Vital Signs: Last Vital Signs Temp 97.9 F 10/28/16 07:37 Pulse 72 10/28/16 07:37 Resp 18 10/28/16 07:37 BP 135/63 10/28/16 07:37 Pulse Ox 94 10/28/16 07:37 Oxygen Pulse Oxygen Saturation 94 O2 Device Room Air Oxygen Flow Rate 2 Fraction of Inspired Oxygen ( 2 FIO2) Constitutional: Alert Oriented to: Time, Person, Place - HEENT Head: Normal (normocephalic, atraumatic.), Other (No cervical lymphadenopathy. No supraclavicular lymphadenopathy. Neck: No palpable mass, supple , trachea midline.) Eye: Normal (pupils equal, reactive to light, and round; EOMI, Sclera white) Oropharynx: Normal (Pharynx: Moist without exudate,Gums-no swelling, No oropharyngeal lesions or erythema, Mucous membranes are dry.) ENT EAC: Normal (No oropharyngeal lesions or erythema. Mucous membranes are dry. ) TMJ: Normal Nose: No Symptoms Reported (septum midline, Nares patent, without discharge or bleeding.) - Respiratory/Cardiovascular Respiratory: Diminished, Rhonchi (Noted when coughing), Wheezes (Faint). negative: Rales, Tachypnea - GI Auscultation: Normal (normal active sounds) Palpation: Normal (Soft,non distended,nontender. No hepatosplenomegaly.) Tenderness: Non tender (No rebound or guarding) Herring's Sign: Negative - Musculoskeletal Back: Normal, Other (Lumbosacral spine scar) Extremities: Normal, Other (Multiple scars over right knee indicating previous surgery). negative: Cyanosis, Edema - Integumentary Skin: Normal (Warm dry no rashes) Lymphatics: Normal (No cervical lymphadenopathy. No supraclavicular lymphadenopathy.) - Neurologic Memory Impaired: Normal Motor Function: Normal (Motor 5/5 throughout.Normal tone, Pulses 2+ No cyanosis or edema, FROM) Cranial Nerve: Normal (CN II-XII intact sensation, strength 5/5) Cerebellar: Normal (Babinski: toes downgoing bilaterally. Intact Finger to nose. Sensory grossly intact to light touch. Intact rapid alternating movements bilaterally. No pronator drift.) Mood Description: Normal (Fully oriented. Normal and appropriate affect.) Thought: Coherent Perception: Normal (Normal and appropriate affect.)
== END 2016-10-28 11:35 | disposition home or self-care (01) | DRG 193 ==
LOC: ED 11:56 → PCU 15:07
PROVIDERS: ADMIT Internal Medicine; ATTEND Internal Medicine
PROC: 4A033R1 Measurement of Arterial Saturation, Peripheral, Percutaneous Approach (ICD-10-PCS; principal; 2016-10-24)
DX: J18.1 Lobar pneumonia, unspecified organism (principal); N17.0 Acute kidney failure with tubular necrosis; G43.609 Persistent migraine aura with cerebral infarction, not intractable, without status migrainosus; I95.9 Hypotension, unspecified; I63.9 Cerebral infarction, unspecified; E87.1 Hypo-osmolality and hyponatremia; J43.2 Centrilobular emphysema; G62.9 Polyneuropathy, unspecified; Z23 Encounter for immunization; I10 Essential (primary) hypertension; R09.02 Hypoxemia; J45.909 Unspecified asthma, uncomplicated; E78.00 Pure hypercholesterolemia, unspecified; K21.9 Gastro-esophageal reflux disease without esophagitis; M19.90 Unspecified osteoarthritis, unspecified site; E66.9 Obesity, unspecified; Z87.891 Personal history of nicotine dependence; Z90.710 Acquired absence of both cervix and uterus; Z88.0 Allergy status to penicillin; Z88.6 Allergy status to analgesic agent; Z88.5 Allergy status to narcotic agent; Z79.51 Long term (current) use of inhaled steroids; Z68.35 Body mass index [BMI] 35.0-35.9, adult
CPT/HCPCS: 36415; 36600; 70450; 71020; 80048; 80053; 81001; 82272; 82803; 83605; 83690; 83880; 84484; 85025; 85027; 85610; 85730; 87040; 87086; 90471; 90732; 93005; 94640; 96365; 96372; 98960; 99285; G0237; J0171; J0456; J0696; J1650; J1885; J1940; J1956; J2550; J2920; J2930; J3490; J7060; J7070; J7620